=== PATIENT | male | born 1950 | race Caucasian/White ===

== ENCOUNTER 2018-06-29 07:15 | Emergency (ER) | payer MEDICARE, OTHER ==
--- NOTE | 2018-06-29 07:42 | RAD ---
EXAM: Single view of the chest HISTORY: Syncope COMPARISON: 06/13/2015 FINDINGS: Single view of the chest shows a normal sized cardiomediastinal silhouette. Increased inter stitial markings are present. There is no evidence of consolidation, mass, or pleural effusion. The bones are unremarkable. IMPRESSION: No evidence of acute cardiopulmonary disease
[2018-06-29 07:43] LABS: #Eosinphils 0.3 thou/uL (0.0-0.7); #Lymphocytes 2.4 thou/uL (1.20-3.40); #Monocytes 1.1 thou/uL (0.11-0.59); #Neutrophils 5.4 thou/uL (1.40-6.50); %Basophils 0.3 % (0.0-1.0); %Eosinophils 2.9 % (0.0-10.0); %Monocytes 11.9 % (0.0-10.0); %Neutrophils 58.9 % (42.0-75.0); Hemoglobin 11.2 g/dL (14.0-18.0); Mean Corpuscular HGB CONC 31.7 g/dL (32.0-36.0); Mean Corpuscular Hemoglobin 29.4 pg (27.0-31.0); Mean Corpuscular Volume 92.8 fL (78.0-98.0); Mean Platelet Volume 6.6 fL (7.4-10.4); Platelet Count 288 thou/uL (130-400); RBC Distribution Width 13.8 % (11.5-14.5); Red Blood Cell (RBC) Count 3.81 mill/uL (4.70-6.10); White Blood Cell (WBC) Count 9.2 thou/uL (4.8-10.8)
[2018-06-29 08:10] LABS: ALT (SGPT) Less than 7 U/L (8-55); AST (SGOT) 13 U/L (5-34); Albumin 3.1 g/dL (3.4-4.8); Alkaline Phosphatase 207 U/L (40-150); Anion Gap 14 mmol/L (10-20); BUN (Urea Nitrogen) 11 mg/dL (8.4-25.7); Bilirubin, Total 0.5 mg/dL (0.2-1.2); CK (CPK) 93 U/L (30-200); Calc. Creatinine Clearance 0 mL/min (70-130); Calcium 7.8 mg/dL (7.8-10.44); Carbon Dioxide 23 mmol/L (23-31); Chloride 103 mmol/L (98-107); Estimated GFR-MDRD 68; Globulin 2.2 g/dL (2.4-3.5); Glucose 101 mg/dL (80-115); Potassium 3.8 mmol/L (3.5-5.1); Protein, Total 5.3 g/dL (5.8-8.1); Sodium 136 mmol/L (136-145)
== END 2018-06-29 10:01 | disposition home or self-care (01) ==
LOC: ERS 07:15
DX: I95.1 Orthostatic hypotension (principal); R42 Dizziness and giddiness; J44.9 Chronic obstructive pulmonary disease, unspecified; I25.2 Old myocardial infarction; I10 Essential (primary) hypertension; K21.9 Gastro-esophageal reflux disease without esophagitis; F17.210 Nicotine dependence, cigarettes, uncomplicated
CPT/HCPCS: 36415; 71045; 80053; 82550; 84484; 85025; 93005; 96360

== ENCOUNTER 2018-09-14 07:05 | Emergency (ER) | payer OTHER, MEDICARE ==
[2018-09-14 07:36] LABS: #Eosinphils 0.1 thou/uL (0.0-0.7); #Lymphocytes 2.4 thou/uL (1.20-3.40); #Monocytes 0.9 thou/uL (0.11-0.59); %Basophils 0.3 % (0.0-1.0); %Eosinophils 0.9 % (0.0-10.0); %Monocytes 6.8 % (0.0-10.0); %Neutrophils 74.1 % (42.0-75.0); Hemoglobin 14.3 g/dL (14.0-18.0); Mean Corpuscular HGB CONC 32.5 g/dL (32.0-36.0); Mean Corpuscular Hemoglobin 28.7 pg (27.0-31.0); Mean Corpuscular Volume 88.2 fL (78.0-98.0); Mean Platelet Volume 6.7 fL (7.4-10.4); Platelet Count 391 thou/uL (130-400); RBC Distribution Width 15.1 % (11.5-14.5); White Blood Cell (WBC) Count 13.6 thou/uL (4.8-10.8)
--- NOTE | 2018-09-14 07:58 | RAD ---
RADIOGRAPH CHEST 1 VIEW: Date: 09/14/2018. Time: 7:22 a.m. HISTORY: A 67-year-old male with lung cancer and COPD who presents with dyspnea and chest pain. COMPARISON: 06/29/2018. FINDINGS: Left hilar mass is again noted. There is small focal opacity partially silhouetting a small portion of the left cardiac border. There is a new finding of elevation of the left hemidiaphragm. Chronica lly prominent interstitial markings throughout the left lung appear more prominent than previously. The right lung is essentially clear. No cardiomegaly. No pneumothorax. IMPRESSION: 1. Chronic changes in the left lung including left hilar mass. 2. No acute findings. VICKIE [] POS: KONG
[2018-09-14 08:07] LABS: ALT (SGPT) 14 U/L (8-55); AST (SGOT) 13 U/L (5-34); Albumin 4.2 g/dL (3.4-4.8); Alkaline Phosphatase 211 U/L (40-150); Anion Gap 17 mmol/L (10-20); BUN (Urea Nitrogen) 12 mg/dL (8.4-25.7); Bilirubin, Total 0.7 mg/dL (0.2-1.2); CK (CPK) 48 U/L (30-200); Calc. Creatinine Clearance 0 mL/min (70-130); Calcium 9.8 mg/dL (7.8-10.44); Carbon Dioxide 24 mmol/L (23-31); Chloride 96 mmol/L (98-107); Estimated GFR-MDRD 64; Globulin 3.7 g/dL (2.4-3.5); Glucose 138 mg/dL (80-115); Potassium 3.7 mmol/L (3.5-5.1); Protein, Total 7.9 g/dL (5.8-8.1); Sodium 133 mmol/L (136-145)
[2018-09-14] MEDS ORDERED: Ondansetron PF 4 MG/2 ML Vial ONE (08:56)
--- NOTE | 2018-09-14 09:38 | CT ---
CT ANGIOGRAM THORAX WITH IV CONTRAST AND 3-D RECONSTRUCTIONS CLINICAL INDICATION: Dyspnea and shortness of breath as well as chest heaviness for the past couple of days. History of CO PD and lung cancer. COMPARISON: 09/15/2014. FINDINGS: Mediastinum: There are enlarged mediastinal and left hilar lymph nodes. The largest subcarinal lymph node measures 4.3 cm x 2.6 cm with left hilar lymph node measuring 3.6 cm x 3.5 cm. This does narrow the left mainstem bronchus as well as left upper and left lower lobe bronchi. There is also mi ld attenuation of the left main pulmonary artery. There is an enlarged prevascular space lymph node measuring 2.5 cm in short axis dimension with the subcarinal and hilar soft tissue density also exten ding into a left paratracheal location and into the region of the AP window. There are calcified mediastinal and hilar lymph nodes suggesting prior granulomatous disease. A tiny pericardial effusion is identified Pulmonary arteries: No filling defects are seen in the pulmonary arteries to suggest a pulmonary embo brendan. However, as noted above, there is mild attenuation of the left main pulmonary artery due to the subcarinal and left hilar mass . Aorta: Vascular calcifications and atherosclerotic plaque is seen in the thoracic aorta. Vascular shira cifications are also seen involving the coronary arteries. Lungs: Again noted are prominent bullous emphysematous changes within the lungs bilaterally greater i n the upper lobes with associated chronic lung changes. The area of calcified pleural thickening lateral right lung apex and right upper lobe is again present. There are reticulonodular densities present within the left hilar region. There are filling defects s een within several left lower lobe bronchi which may be related to mucous leading or debris Scattered calcified granulomata are seen within the lungs bilaterally. There is generalized volume lo ss involving the left upper lobe. Parenchymal changes are seen in the region of the lingula which could be related to atelectasis. Given the irregularity of the density in the lingula, follow-up eval uation is recommended as infiltrate or neoplastic process cannot be entirely excluded. Thyroid gland: Normal CT appearance. Osseous structures: No suspicious lytic or sclerotic osseous lesions are identified. Degenerative jimmy nges are noted in the spine. There is right convex curvature of the thoracic spine. Chest wall: No abnormality visualized. Upper abdomen: Within normal limits for phase of imaging. IMPRESSION: 1. Low density masses in the mediastinum and left hilar region most likely related to conglomeration of lymphadenopathy as described above. However, there is narrowing of the left mainstem bronchus as well as attenuation of the distal left main pulmonary artery due to the masses. Low-density material is seen within left lower lobe and left upper lobe bronchi which may related to mucous plugging or occlusion of the bronchi due to the mass. 2. Reticulonodular densities are present in the lingula which could be related to infectious or infla mmatory process. 3. No CT evidence of a pulmonary embolus. 4. Chronic lung changes and COPD. 5. Parenchymal densities in the lingula which could be related to atelectasis and/or scarring. Sammi r, infiltrate or neoplastic process cannot be entirely excluded, and follow-up evaluation is suggested.
[2018-09-14] MEDS ORDERED: Vancomycin HCl 1.5 GM in Sodium Chloride 0.9% 250 ML 300 ML IVPB SCH ×2 (10:45→15:15)
[2018-09-14] MEDS ORDERED: Piperacillin/Tazobactam 4.5 GM VIAL ONE (10:51)
[2018-09-14] MEDS ORDERED: ISOVUE-370 76%-LOCM 1 ML ONE (11:51)
[2018-09-14] MEDS ORDERED: Loperamide HCl 2 MG CAP ONE (13:07)
[2018-09-14] MEDS ORDERED: methylPREDNISolone Sod Succ/PF 125 MG/2 ML VIAL ONE (14:27)
[2018-09-14] MEDS ORDERED: EPINEPHrine 1 MG/ML AMP ONE (14:27)
[2018-09-14] MEDS ORDERED: Famotidine/PF 20 mg/2ml Vial ONE (14:27)
[2018-09-14] MEDS ORDERED: Acetaminophen/Codeine 30-300mg Tablet ONE (15:01)
[2018-09-14] MEDS ORDERED: Gabapentin 100 MG CAP PO SCH (15:15)
[2018-09-14] MEDS ORDERED: Acetaminophen/Codeine 30-300mg Tablet PO SCH (15:30)
[2018-09-14 15:44] LABS: Lactic Acid 2.8 mmol/L (0.5-2.2)
== END 2018-09-14 15:44 ==
LOC: ERS 07:05
DX: J18.1 Lobar pneumonia, unspecified organism (principal); C34.92 Malignant neoplasm of unspecified part of left bronchus or lung; J44.9 Chronic obstructive pulmonary disease, unspecified; I25.2 Old myocardial infarction; I10 Essential (primary) hypertension; F17.210 Nicotine dependence, cigarettes, uncomplicated
CPT/HCPCS: 36415; 71045; 71275; 80053; 82550; 83605; 83880; 84484; 85025; 87040; 93005; 94640; 96365; 96366; 96367; 96375; J0171; J1956; J2405; J2543; J2930; J3370; J7050; Q9966; S0028